=== PATIENT | female | born 1990 | race Caucasian/White ===

== ENCOUNTER 2022-04-09 12:34 | Inpatient (IN) | payer OTHER ==
[~2022-04-09] VITALS: Ht 160 cm; Wt 61.0 kg
[2022-04-09] MEDS ORDERED: BACITRACIN 28 GM OINTMENT TP ONE (17:00)
[2022-04-09] MEDS ORDERED: LIDOCAINE 1% 10 ML VIAL INJ ONE (17:00)
[2022-04-09 17:03] LABS: BASOPHILS % (AUTO) 0.7 % (0.0-2.0); EOSINOPHILS % (AUTO) 0.5 % (1.0-6.0); HEMATOCRIT 43.6 % (36-46); HEMOGLOBIN 14.4 g/dL (12.0-16.0); LYMPHOCYTES # (AUTO) 1.6 K/uL (1.0-4.8); LYMPHOCYTES % (AUTO) 23.5 % (22.0-44.0); MEAN CORPUSCULAR HEMOGLOBIN 29.2 pg (26.0-34.0); MEAN CORPUSCULAR HGB CONC 33.1 G/dL (31.0-37.0); MEAN CORPUSCULAR VOLUME 88 fL (80-100); MONOCYTES # (AUTO) 0.6 K/uL (0.1-1.0); MONOCYTES % (AUTO) 8.5 % (2.0-9.0); NEUTROPHILS # (AUTO) 4.6 K/uL (1.8-7.7); NEUTROPHILS % (AUTO) 66.8 % (40.0-70.0); PLATELET COUNT (AUTO) 187 K/uL (150-450); RED BLOOD CELL COUNT(AUTO) 4.94 MIL/uL (4.00-5.20); RED CELL DISTRIBUTION WIDTH 14.8 % (11.5-14.5)
[2022-04-09 17:13] LABS: ANION GAP 10 mmol/L (8-16); CALCIUM, TOTAL 9.2 mg/dL (8.8-10.5); CARBON DIOXIDE 25 mmol/L (22-29); CHLORIDE 103 mmol/L (98-107); GLUCOSE,RANDOM 83 mg/dL (70-110); POTASSIUM 3.6 mmol/L (3.5-5.1); SODIUM SERUM 138 mmol/L (136-145); UREA NITROGEN, BLOOD 10 mg/dL (7-18)
[2022-04-09 17:25] LABS: ALANINE AMINOTRANSFERASE 37 U/L (12-78); ALBUMIN 3.9 g/dL (3.4-5.0); ALKALINE PHOSPHATASE 75 U/L (46-116); ASPARTATE AMINOTRANSFERASE 30 U/L (15-37); BILIRUBIN,TOTAL 0.6 mg/dL (0.1-1.0); CREATININE 0.64 mg/dL (0.60-1.30); GLOMERULAR FILTR. RATE CALC > 60 mL/min (>60); HCG,QUANTITATIVE < 1 mIU/mL (0-6); TOTAL PROTEIN, SERUM 7.6 g/dL (6.4-8.2)
[2022-04-09 18:20] LABS: COVID AG,FIA SOURCE NASAL SWAB
[2022-04-09] MEDS ORDERED: ONDANSETRON HCL 4 MG/2 ML VIAL IVP PRN (18:30)
[2022-04-09] MEDS ORDERED: IPRATROPIUM BROMIDE 0.5 MG/2.5 ML NEB SOLUTION NEB PRN (18:30)
[2022-04-09] MEDS ORDERED: BISACODYL 10 MG RECTAL RECTAL SUPPOSITORY PR PRN (18:30)
[2022-04-09] MEDS ORDERED: 0.9% SODIUM CHLORIDE 10 ML SYRINGE IVP PRN (18:30)
[2022-04-09] MEDS ORDERED: DOCUSATE SODIUM 100 MG CAPSULE PO PRN (18:30)
[2022-04-09] MEDS ORDERED: ALBUTEROL SULFATE 2.5 MG/0.5 ML NEB SOLUTION NEB PRN (18:30)
[2022-04-09 20:38] VITALS: BP 121/82
[2022-04-09] MEDS: ACETAMINOPHEN 325 MG TABLET PO PRN (20:39)
[2022-04-09] MEDS ORDERED: DiphenhydrAMINE HCL 25 MG CAPSULE PO ONE (21:45)
[2022-04-09] MEDS ORDERED: KETOROLAC TROMETHAMINE 30 MG/ML VIAL IVP ONE (21:45)
[2022-04-09] MEDS ORDERED: MELATONIN 3 MG TABLET PO ONE (23:15)
[2022-04-10 04:10] VITALS: BP 106/59
[2022-04-10 07:31] VITALS: BP 110/60
[2022-04-10 08:23] LABS: AMPHET/METH SCREEN,URINE NEGATIVE (NEGATIVE); BARBITURATE SCREEN, URINE NEGATIVE (NEGATIVE); BENZODIAZEPINES SCREEN,URINE NEGATIVE (NEGATIVE); CANNABINOID SCREEN,URINE NEGATIVE (NEGATIVE); COCAINE SCREEN,URINE NEGATIVE (NEGATIVE); METHADONE SCREEN, URINE NEGATIVE (NEGATIVE); OPIATE SCREEN,URINE NEGATIVE (NEGATIVE)
[2022-04-10 09:53] LABS: PHENCYCLIDINE SCREEN,URINE NEGATIVE (NEGATIVE)
[2022-04-10] MEDS: ACETAMINOPHEN 325 MG TABLET PO PRN (12:21)
[2022-04-10] MEDS ORDERED: QUEtiapine FUMARATE 25 MG TABLET PO ONE (13:15)
[2022-04-10 15:06] VITALS: BP 116/64
[2022-04-10] MEDS ORDERED: MAG HYDROX/AL HYDROX/SIMETH ES 30 ML SUSPENSION UDCUP PO PRN (16:00)
[2022-04-10] MEDS ORDERED: DICYCLOMINE HCL 10 MG CAPSULE PO PRN (16:00)
[2022-04-10] MEDS ORDERED: LOPERAMIDE HCL 2 MG/15 ML SUSPENSION UDCUP PO PRN (16:00)
[2022-04-10] MEDS ORDERED: ACETAMINOPHEN 325 MG TABLET PO PRN (16:00)
[2022-04-10] MEDS ORDERED: PROMETHAZINE HCL 25 MG TABLET PO PRN (16:00)
[2022-04-10 17:05] VITALS: BP 106/58
[2022-04-10] MEDS: IBUPROFEN 600 MG TABLET PO PRN (17:11)
[2022-04-10] MEDS: CloNIDine HCL 0.1 MG TABLET PO PRN (17:12)
[2022-04-10] MEDS: BACLOFEN 10 MG TABLET PO PRN (17:12)
[2022-04-10] MEDS: LORazepam 1 MG TABLET PO PRN (18:52)
[2022-04-10] MEDS: HydrOXYzine PAMOATE 50 MG CAPSULE PO PRN (19:45)
[2022-04-10] MEDS: TraZODone HCL 50 MG TABLET PO PRN (19:45)
[2022-04-10 19:50] VITALS: BP 105/58
[2022-04-10] MEDS ORDERED: QUEtiapine FUMARATE 100 MG TABLET PO SCH (21:00)
[2022-04-11 04:56] VITALS: BP 127/71
[2022-04-11] MEDS: LORazepam 1 MG TABLET PO PRN ×3 (08:22→21:33)
[2022-04-11 08:33] VITALS: BP 98/74
[2022-04-11] MEDS ORDERED: QUEtiapine FUMARATE 200 MG TABLET PO SCH (09:00)
[2022-04-11] MEDS ORDERED: QUEtiapine FUMARATE 25 MG TABLET PO SCH (09:00)
[2022-04-11] MEDS ORDERED: QUEtiapine FUMARATE 100 MG TABLET PO ONE (10:00)
[2022-04-11 14:25] VITALS: BP 130/59
[2022-04-11] MEDS: BACLOFEN 10 MG TABLET PO PRN (15:03)
[2022-04-11 20:02] VITALS: BP 96/54
[2022-04-11] MEDS: QUEtiapine FUMARATE 200 MG TABLET PO SCH (21:32)
[2022-04-11] MEDS: CloNIDine HCL 0.1 MG TABLET PO PRN (21:33)
[2022-04-11] MEDS: TraZODone HCL 50 MG TABLET PO PRN (21:34)
[2022-04-12] MEDS: LORazepam 1 MG TABLET PO PRN ×2 (03:27→16:04)
[2022-04-12 05:26] VITALS: BP 99/54
[2022-04-12 08:54] VITALS: BP 117/57
[2022-04-12] MEDS: MULTIVITAMINS WITH MINERALS, THERAPEUTIC TABLET PO SCH (08:55)
[2022-04-12] MEDS: QUEtiapine FUMARATE 200 MG TABLET PO SCH ×2 (08:55→19:59)
[2022-04-12 16:04] VITALS: BP 101/64
[2022-04-12] MEDS: IBUPROFEN 600 MG TABLET PO PRN (16:04)
[2022-04-12] MEDS: BACITRACIN 28 GM OINTMENT TP SCH (16:05)
[2022-04-12 20:00] VITALS: BP 92/62
[2022-04-12] MEDS: TraZODone HCL 50 MG TABLET PO PRN (20:07)
[2022-04-13 04:10] VITALS: BP 100/54
[2022-04-13 08:42] VITALS: BP 111/66
[2022-04-13] MEDS: QUEtiapine FUMARATE 200 MG TABLET PO SCH ×2 (09:13→20:55)
[2022-04-13] MEDS: MULTIVITAMINS WITH MINERALS, THERAPEUTIC TABLET PO SCH (09:13)
[2022-04-13] MEDS: LORazepam 1 MG TABLET PO PRN ×2 (09:14→21:01)
[2022-04-13 12:17] LABS: BASOPHILS % (AUTO) 0.6 % (0.0-2.0); EOSINOPHILS % (AUTO) 4.9 % (1.0-6.0); HEMATOCRIT 43.5 % (36-46); HEMOGLOBIN 14.7 g/dL (12.0-16.0); LYMPHOCYTES # (AUTO) 1.7 K/uL (1.0-4.8); LYMPHOCYTES % (AUTO) 22.7 % (22.0-44.0); MEAN CORPUSCULAR HEMOGLOBIN 30.1 pg (26.0-34.0); MEAN CORPUSCULAR HGB CONC 33.8 G/dL (31.0-37.0); MEAN CORPUSCULAR VOLUME 89 fL (80-100); MONOCYTES # (AUTO) 0.7 K/uL (0.1-1.0); MONOCYTES % (AUTO) 9.1 % (2.0-9.0); NEUTROPHILS # (AUTO) 4.8 K/uL (1.8-7.7); NEUTROPHILS % (AUTO) 62.7 % (40.0-70.0); PLATELET COUNT (AUTO) 199 K/uL (150-450); RED BLOOD CELL COUNT(AUTO) 4.88 MIL/uL (4.00-5.20); RED CELL DISTRIBUTION WIDTH 14.8 % (11.5-14.5)
[2022-04-13 12:29] LABS: ANION GAP 8 mmol/L (8-16); CALCIUM, TOTAL 8.9 mg/dL (8.8-10.5); CARBON DIOXIDE 26 mmol/L (22-29); CHLORIDE 108 mmol/L (98-107); CREATININE 0.52 mg/dL (0.60-1.30); GLUCOSE,RANDOM 95 mg/dL (70-110); POTASSIUM 4.6 mmol/L (3.5-5.1); SODIUM SERUM 142 mmol/L (136-145); UREA NITROGEN, BLOOD 19 mg/dL (7-18)
[2022-04-13 12:33] LABS: GLOMERULAR FILTR. RATE CALC > 60 mL/min (>60)
[2022-04-13 12:35] LABS: ALANINE AMINOTRANSFERASE 44 U/L (12-78); ALBUMIN 3.5 g/dL (3.4-5.0); ALKALINE PHOSPHATASE 84 U/L (46-116); ASPARTATE AMINOTRANSFERASE 34 U/L (15-37); BILIRUBIN,TOTAL 0.3 mg/dL (0.1-1.0); TOTAL PROTEIN, SERUM 7.2 g/dL (6.4-8.2)
[2022-04-13 13:17] LABS: THYROID STIMULATING HORMONE 0.64 uIU/mL (0.36-3.74)
[2022-04-13 16:17] VITALS: BP 107/55
[2022-04-13] MEDS: BACITRACIN 28 GM OINTMENT TP SCH (16:32)
[2022-04-13 20:15] VITALS: BP 109/59
[2022-04-13] MEDS: TraZODone HCL 50 MG TABLET PO PRN (21:00)
[2022-04-14 05:55] VITALS: BP 103/64
[2022-04-14 08:19] VITALS: BP 98/60
[2022-04-14] MEDS: MULTIVITAMINS WITH MINERALS, THERAPEUTIC TABLET PO SCH (08:50)
[2022-04-14] MEDS: QUEtiapine FUMARATE 200 MG TABLET PO SCH ×2 (08:50→21:09)
[2022-04-14] MEDS: LORazepam 1 MG TABLET PO PRN ×2 (08:52→18:28)
[2022-04-14] MEDS: CloNIDine HCL 0.1 MG TABLET PO PRN (08:52)
[2022-04-14] MEDS: BACITRACIN 28 GM OINTMENT TP SCH (08:55)
[2022-04-14] MEDS: HydrOXYzine PAMOATE 50 MG CAPSULE PO PRN (15:54)
[2022-04-14 16:16] VITALS: BP 106/63
[2022-04-14 20:04] VITALS: BP 98/67
[2022-04-14] MEDS: TraZODone HCL 50 MG TABLET PO PRN (21:09)
[2022-04-15] MEDS: HydrOXYzine PAMOATE 50 MG CAPSULE PO PRN ×2 (00:13→16:25)
[2022-04-15] MEDS: BACLOFEN 10 MG TABLET PO PRN (00:13)
[2022-04-15 05:46] VITALS: BP 100/54
[2022-04-15 08:10] VITALS: BP 97/62
[2022-04-15] MEDS: QUEtiapine FUMARATE 200 MG TABLET PO SCH (09:00)
[2022-04-15] MEDS: QUEtiapine FUMARATE 300 MG TABLET PO SCH ×2 (09:12→20:17)
[2022-04-15] MEDS: BACITRACIN 28 GM OINTMENT TP SCH (09:12)
[2022-04-15] MEDS: MULTIVITAMINS WITH MINERALS, THERAPEUTIC TABLET PO SCH (09:12)
[2022-04-15] MEDS: LORazepam 1 MG TABLET PO PRN ×2 (09:57→19:43)
[2022-04-15 19:44] VITALS: BP 112/54
[2022-04-15] MEDS: TraZODone HCL 50 MG TABLET PO PRN (20:18)
[2022-04-16] MEDS: BACLOFEN 10 MG TABLET PO PRN ×2 (03:34→17:38)
[2022-04-16] MEDS: HydrOXYzine PAMOATE 50 MG CAPSULE PO PRN ×2 (03:34→17:34)
[2022-04-16 03:39] VITALS: BP 100/52
[2022-04-16 07:41] VITALS: BP 93/56
[2022-04-16] MEDS: MULTIVITAMINS WITH MINERALS, THERAPEUTIC TABLET PO SCH (09:01)
[2022-04-16] MEDS: QUEtiapine FUMARATE 300 MG TABLET PO SCH ×2 (09:01→20:04)
[2022-04-16] MEDS: BACITRACIN 28 GM OINTMENT TP SCH (09:02)
[2022-04-16] MEDS: LORazepam 1 MG TABLET PO PRN (09:05)
[2022-04-16 15:05] VITALS: BP 106/50
[2022-04-16] MEDS: TraZODone HCL 50 MG TABLET PO PRN (20:04)
[2022-04-16 20:15] VITALS: BP 101/55
[2022-04-17 05:35] VITALS: BP 100/63
[2022-04-17 07:23] VITALS: BP 90/61
[2022-04-17] MEDS: MULTIVITAMINS WITH MINERALS, THERAPEUTIC TABLET PO SCH (08:15)
[2022-04-17] MEDS: QUEtiapine FUMARATE 300 MG TABLET PO SCH (08:15)
[2022-04-17] MEDS: HydrOXYzine PAMOATE 50 MG CAPSULE PO PRN (08:24)
[2022-04-17] MEDS: BACLOFEN 10 MG TABLET PO PRN (08:25)
[2022-04-17] MEDS: BACITRACIN 28 GM OINTMENT TP SCH ×2 (09:00→15:04)
[2022-04-17 16:00] VITALS: BP 115/64
== END 2022-04-17 16:51 | DRG 885 ==
LOC: EMS 12:34 → 6S 16:58
PROVIDERS: ADMIT Internal Medicine; ATTEND Internal Medicine
DX: F33.2 Major depressive disorder, recurrent severe without psychotic features (principal); R45.851 Suicidal ideations; F06.4 Anxiety disorder due to known physiological condition; F11.10 Opioid abuse, uncomplicated; J45.909 Unspecified asthma, uncomplicated; F10.10 Alcohol abuse, uncomplicated; F19.10 Other psychoactive substance abuse, uncomplicated; Z20.822 Contact with and (suspected) exposure to COVID-19; F25.1 Schizoaffective disorder, depressive type; Z53.20 Procedure and treatment not carried out because of patient's decision for unspecified reasons; S51.812A Laceration without foreign body of left forearm, initial encounter; S61.512A Laceration without foreign body of left wrist, initial encounter; X78.9XXA Intentional self-harm by unspecified sharp object, initial encounter; Y93.89 Activity, other specified; Y92.89 Other specified places as the place of occurrence of the external cause; Y99.8 Other external cause status; Z79.899 Other long term (current) drug therapy
CPT/HCPCS: 12005; 80053; 80307; 84443; 84702; 85025; 99285; G0480; J1885; J3490

== ENCOUNTER 2022-05-05 13:14 | Inpatient (IN) | payer OTHER ==
[~2022-05-05] VITALS: Ht 157.5 cm; Wt 64.7 kg
[2022-05-05] MEDS ORDERED: OLAN10TA26 PO ×2 (14:44)
[2022-05-05 15:28] LABS: BASOPHILS % (AUTO) 0.7 % (0.0-2.0); EOSINOPHILS % (AUTO) 3.8 % (1.0-6.0); HEMATOCRIT 40.1 % (36-46); HEMOGLOBIN 13.2 g/dL (12.0-16.0); LYMPHOCYTES # (AUTO) 2.4 K/uL (1.0-4.8); LYMPHOCYTES % (AUTO) 29.3 % (22.0-44.0); MEAN CORPUSCULAR HEMOGLOBIN 30.2 pg (26.0-34.0); MEAN CORPUSCULAR VOLUME 92 fL (80-100); MONOCYTES # (AUTO) 0.7 K/uL (0.1-1.0); MONOCYTES % (AUTO) 8.5 % (2.0-9.0); NEUTROPHILS # (AUTO) 4.6 K/uL (1.8-7.7); NEUTROPHILS % (AUTO) 57.7 % (40.0-70.0); PLATELET COUNT (AUTO) 214 K/uL (150-450); RED BLOOD CELL COUNT(AUTO) 4.37 MIL/uL (4.00-5.20); RED CELL DISTRIBUTION WIDTH 15.3 % (11.5-14.5)
[2022-05-05 15:40] LABS: ANION GAP 7 mmol/L (8-16); CALCIUM, TOTAL 8.8 mg/dL (8.8-10.5); CARBON DIOXIDE 30 mmol/L (22-29); CHLORIDE 106 mmol/L (98-107); CREATININE 0.69 mg/dL (0.60-1.30); GLUCOSE,RANDOM 109 mg/dL (70-110); POTASSIUM 3.8 mmol/L (3.5-5.1); SODIUM SERUM 143 mmol/L (136-145); UREA NITROGEN, BLOOD 17 mg/dL (7-18)
[2022-05-05 15:41] LABS: GLOMERULAR FILTR. RATE CALC > 60 mL/min (>60)
[2022-05-05 15:57] LABS: ALANINE AMINOTRANSFERASE 66 U/L (12-78); ALBUMIN 3.3 g/dL (3.4-5.0); ALKALINE PHOSPHATASE 87 U/L (46-116); ASPARTATE AMINOTRANSFERASE 39 U/L (15-37); BILIRUBIN,TOTAL 0.2 mg/dL (0.1-1.0); TOTAL PROTEIN, SERUM 6.9 g/dL (6.4-8.2)
[2022-05-05 18:08] LABS: AMPHET/METH SCREEN,URINE NEGATIVE (NEGATIVE); BARBITURATE SCREEN, URINE NEGATIVE (NEGATIVE); BENZODIAZEPINES SCREEN,URINE NEGATIVE (NEGATIVE); CANNABINOID SCREEN,URINE NEGATIVE (NEGATIVE); COCAINE SCREEN,URINE NEGATIVE (NEGATIVE); METHADONE SCREEN, URINE NEGATIVE (NEGATIVE); OPIATE SCREEN,URINE NEGATIVE (NEGATIVE)
[2022-05-05 18:10] LABS: PHENCYCLIDINE SCREEN,URINE NEGATIVE (NEGATIVE)
[2022-05-05] MEDS ORDERED: ONDANSETRON HCL 4 MG/2 ML VIAL IVP PRN (18:15)
[2022-05-05] MEDS ORDERED: ACETAMINOPHEN 325 MG TABLET PO PRN (18:15)
[2022-05-05 18:26] LABS: COVID AG,FIA SOURCE NASAL SWAB
[2022-05-05] MEDS: HEPARIN SODIUM,PORCINE 5,000 UNITS/ML VIAL SQ SCH (23:11)
[2022-05-05 23:19] VITALS: BP 99/56
[2022-05-06 05:05] VITALS: BP 98/60
[2022-05-06 07:59] VITALS: BP 98/75
[2022-05-06] MEDS: HEPARIN SODIUM,PORCINE 5,000 UNITS/ML VIAL SQ SCH ×2 (08:00→16:00)
[2022-05-06] MEDS: RisperiDONE 2 MG TABLET PO SCH ×2 (09:29→22:17)
[2022-05-06 15:16] VITALS: BP 106/65
[2022-05-06 19:52] VITALS: BP 94/60
[2022-05-07] MEDS: HEPARIN SODIUM,PORCINE 5,000 UNITS/ML VIAL SQ SCH ×4 (00:07→23:37)
[2022-05-07 04:07] VITALS: BP 95/56
[2022-05-07 08:10] VITALS: BP 91/61
[2022-05-07] MEDS: RisperiDONE 2 MG TABLET PO SCH (08:59)
[2022-05-07] MEDS: QUEtiapine FUMARATE 25 MG TABLET PO PRN ×3 (12:27→22:17)
[2022-05-07 15:44] VITALS: BP 89/54
[2022-05-07 20:00] VITALS: BP 99/67
[2022-05-07] MEDS ORDERED: RisperiDONE 4 MG TABLET PO SCH (21:00)
[2022-05-08 04:15] VITALS: BP 107/72
[2022-05-08] MEDS: QUEtiapine FUMARATE 25 MG TABLET PO PRN ×3 (06:42→14:56)
[2022-05-08] MEDS: HEPARIN SODIUM,PORCINE 5,000 UNITS/ML VIAL SQ SCH (08:00)
[2022-05-08 08:08] VITALS: BP 93/57
[2022-05-08] MEDS ORDERED: RisperiDONE 2 MG TABLET PO SCH (09:00)
[2022-05-08] MEDS ORDERED: RISP2TAB45 PO (11:24)
[2022-05-08] MEDS ORDERED: RISPERDONE PO (11:26)
[2022-05-08] MEDS ORDERED: RISP4TAB73 PO (11:32)
[2022-05-08 15:36] VITALS: BP 98/61
== END 2022-05-08 15:50 | DRG 885 ==
LOC: EMS 13:22 → 6S 21:04
PROVIDERS: ADMIT Internal Medicine; ATTEND Internal Medicine
PROC: 0HQEXZZ Repair Left Lower Arm Skin, External Approach (ICD-10-PCS; principal; 2022-05-05)
DX: F20.0 Paranoid schizophrenia (principal); R45.851 Suicidal ideations; E87.3 Alkalosis; F41.9 Anxiety disorder, unspecified; J45.909 Unspecified asthma, uncomplicated; F11.90 Opioid use, unspecified, uncomplicated; F32.9 Major depressive disorder, single episode, unspecified; S51.812A Laceration without foreign body of left forearm, initial encounter; Z20.822 Contact with and (suspected) exposure to COVID-19; R74.8 Abnormal levels of other serum enzymes; X78.9XXA Intentional self-harm by unspecified sharp object, initial encounter; Y93.89 Activity, other specified; Z79.899 Other long term (current) drug therapy; Y92.89 Other specified places as the place of occurrence of the external cause; Y99.8 Other external cause status
CPT/HCPCS: 80053; 85025; 87081; 99285; G0480; J1644